=== PATIENT | female | born 1950 | race Caucasian/White ===

== ENCOUNTER → 2024-02-06 07:58 | Outpatient (REF) | payer MEDICARE, SELFPAY | LOC: HWRCS 07:58 | PROVIDERS: ATTENDING PHYSICIAN Internal Medicine Cardiovascular Disease; FAMILY PHYSICIAN Physician Assistant | DX: I42.8 Other cardiomyopathies (principal) | CPT/HCPCS: 93306 ==

== ENCOUNTER → 2024-09-10 10:51 | Outpatient (REF) | payer MEDICARE, SELFPAY | LOC: HWRAD 10:51 | PROVIDERS: ATTENDING PHYSICIAN Internal Medicine Rheumatology; FAMILY PHYSICIAN Physician Assistant; REFERRING PHYSICIAN Internal Medicine | DX: M81.0 Age-related osteoporosis without current pathological fracture (principal) | CPT/HCPCS: 77080 ==

== ENCOUNTER → 2024-09-25 08:34 | Outpatient (REF) | payer MEDICARE, SELFPAY | LOC: RAD 08:34 | PROVIDERS: ATTENDING PHYSICIAN Internal Medicine Cardiovascular Disease; FAMILY PHYSICIAN Physician Assistant | DX: R55 Syncope and collapse (principal); I42.8 Other cardiomyopathies | CPT/HCPCS: 93880 ==

== ENCOUNTER → 2024-10-01 08:10 | Outpatient (REF) | payer MEDICARE, SELFPAY | LOC: HWRCS 08:10 | PROVIDERS: ATTENDING PHYSICIAN Internal Medicine Cardiovascular Disease; FAMILY PHYSICIAN Physician Assistant | DX: R55 Syncope and collapse (principal); I42.8 Other cardiomyopathies | CPT/HCPCS: 78452; 93017; A9500 ==

== ENCOUNTER → 2024-10-24 07:28 | Outpatient (REF) | payer MEDICARE, SELFPAY | LOC: PAVMRI 07:28 | PROVIDERS: ATTENDING PHYSICIAN Internal Medicine Cardiovascular Disease; FAMILY PHYSICIAN Physician Assistant | DX: R55 Syncope and collapse (principal); I42.8 Other cardiomyopathies | CPT/HCPCS: 70553; A9575 ==